=== PATIENT | female | born 1945 | race Two or more races ===

== ENCOUNTER 2024-05-21 14:27 | Emergency (ER) | payer OTHER ==
[~2024-05-21] VITALS: Ht 157.5 cm; Wt 68.0 kg
[2024-05-21] MEDS ORDERED: CENTRUM SILVER1 EAC5 (14:42)
[2024-05-21] MEDS ORDERED: LOSARTAN-HCTZ1 EAC1 PO (14:42)
[2024-05-21] MEDS ORDERED: ARICEPT10 MG PO (14:42)
[2024-05-21] MEDS ORDERED: ATORVASTATIN CA10 MG PO (14:42)
[2024-05-21] MEDS ORDERED: MIRTAZAPINE7.5 MG PO (14:43)
[2024-05-21] MEDS ORDERED: MONTELUKAST SODI4 M1 (14:43)
[2024-05-21] MEDS ORDERED: CEFTRIAXONE SODIUM 1,000 MG VIAL IM STA (16:29)
[2024-05-21] MEDS ORDERED: CEFTRIAXONE SODIUM 1,000 MG VIAL ONE (16:50)
== END 2024-05-21 17:01 | disposition home or self-care (01) ==
LOC: ER 14:30
DX: R53.81 Other malaise (principal); L03.011 Cellulitis of right finger
CPT/HCPCS: 96372; 99282; J0696